=== PATIENT | male | born 1935 | race Caucasian/White ===

== ENCOUNTER 2020-12-16 10:09 | Outpatient (CLI) | payer MEDICARE ==
[2020-12-16] MEDS ORDERED: SULF-23 PO (11:07)
[2020-12-16] MEDS ORDERED: ALPR0.5T7 PO (11:07)
[2020-12-16] MEDS ORDERED: APIX5TAB PO (11:07)
[2020-12-16] MEDS ORDERED: Vitamin D3 PO (11:07)
[2020-12-16] MEDS ORDERED: METO200T47 PO (11:07)
[2020-12-16] MEDS ORDERED: FLEC50TA25 PO (11:07)
[2020-12-16] MEDS ORDERED: TAMS-11 PO (11:07)
[2020-12-16] MEDS ORDERED: MULT-717 PO (11:07)
[2020-12-16] MEDS ORDERED: HYDR-3237 PO (11:07)
[2020-12-16] MEDS ORDERED: DILT-8 PO (11:07)
== END 2020-12-16 23:59 | disposition home or self-care (01) ==
LOC: STAR 10:09
PROVIDERS: ATTEND Orthopaedic Surgery Hand Surgery
DX: Z01.812 Encounter for preprocedural laboratory examination (principal); Z20.822 Contact with and (suspected) exposure to COVID-19; S62.631B Displaced fracture of distal phalanx of left index finger, initial encounter for open fracture; X58.XXXA Exposure to other specified factors, initial encounter; Y93.89 Activity, other specified; Y92.89 Other specified places as the place of occurrence of the external cause; Y99.8 Other external cause status
CPT/HCPCS: 93005; U0003

== ENCOUNTER 2020-12-20 09:17 | Day surgery (SDC) | payer MEDICARE ==
[~2020-12-20] VITALS: Ht 182.9 cm; Wt 89.8 kg
[~2020-12-20 09:17] MED LIST: ALPR0.5T7 PO; APIX5TAB PO; DILT-8 PO; FLEC50TA25 PO; HYDR-3237 PO; METO200T47 PO; MULT-717 PO; SULF1TAB24 PO; TAMS-11 PO; Vitamin D3 PO
[2020-12-20 09:45] VITALS: BP 103/72
[2020-12-20] MEDS ORDERED: LACTATED RINGERS 1,000 ML IV SCH (10:00)
[2020-12-20] MEDS ORDERED: CHLORHEXIDINE 15 ML UDC PO ONE (10:00)
[2020-12-20] MEDS ORDERED: MIDAZOLAM 1 MG/ML, 2ML ONE (10:08)
[2020-12-20] MEDS ORDERED: FENTANYL PF 100 MCG/2ML ONE (10:08)
[2020-12-20] MEDS ORDERED: BUPIVACAINE/PF 0.5% ONE (10:25)
[2020-12-20] MEDS ORDERED: LABETALOL 5MG/ML, 20ML IV PRN (10:30)
[2020-12-20] MEDS ORDERED: DIPHENHYDRAMINE 50 MG/ML, 1ML IVPush PRN (10:30)
[2020-12-20] MEDS ORDERED: ACETAMINOPHEN 325 MG TABLET PO PRN (10:30)
[2020-12-20] MEDS ORDERED: HALOPERIDOL 5 MG/ML IV PRN (10:30)
[2020-12-20] MEDS ORDERED: FENTANYL PF 100 MCG/2ML IV PRN (10:30)
[2020-12-20] MEDS ORDERED: HYDROmorphone 1 MG/ML, 1ML INJ IVPush PRN (10:30)
[2020-12-20] MEDS ORDERED: hydrALAzine 20 MG/ML, 1ML IV PRN (10:30)
[2020-12-20] MEDS ORDERED: PROMETHAZINE 25 MG/ML, 1ML IVPush PRN (10:30)
[2020-12-20] MEDS ORDERED: METOPROLOL 1 MG/ML, 5ML IV PRN (10:30)
[2020-12-20] MEDS ORDERED: OXYcodone 5 MG/5 ML ORAL.SOL UDC PO PRN (10:30)
[2020-12-20] MEDS ORDERED: CEFAZOLIN 1,000 MG ONE (10:36)
[2020-12-20] MEDS ORDERED: KETOROLAC 30 MG/1 ML ONE (10:51)
[2020-12-20] MEDS ORDERED: PROPOFOL 10 MG/ML, 20ML ONE (10:51)
== END 2020-12-20 12:40 | disposition home or self-care (01) ==
LOC: OUT 09:17
PROVIDERS: ATTEND Orthopaedic Surgery Hand Surgery
DX: S62.631B Displaced fracture of distal phalanx of left index finger, initial encounter for open fracture (principal); I10 Essential (primary) hypertension; E78.5 Hyperlipidemia, unspecified; I48.91 Unspecified atrial fibrillation; X58.XXXA Exposure to other specified factors, initial encounter; Y93.89 Activity, other specified; Y92.89 Other specified places as the place of occurrence of the external cause; Y99.8 Other external cause status; Z79.899 Other long term (current) drug therapy; Z72.89 Other problems related to lifestyle; Z98.890 Other specified postprocedural states; Z95.0 Presence of cardiac pacemaker; Z79.01 Long term (current) use of anticoagulants; Z87.891 Personal history of nicotine dependence
CPT/HCPCS: 11730; 11760; J0690; J1885; J2250; J2704; J7120; J3010